=== PATIENT | male | born 1975 | race Asian ===

== ENCOUNTER 2017-04-13 00:24 | Inpatient (IN) | payer OTHER ==
[~2017-04-13] VITALS: Ht 175.3 cm; Wt 81.4 kg
[2017-04-13 01:01] LABS: HEMATOCRIT 43.3 % (39.2-51.8); HEMOGLOBIN 14.5 g/dL (13.7-18.0); WHITE BLOOD COUNT 5.5 x10^3/uL (3.4-10)
[2017-04-13 01:12] LABS: ASPARTATE AMINO TRANSFERASE 709 U/L (15-37); BLOOD UREA NITROGEN 10 mg/dL (7-18)
[2017-04-13] MEDS ORDERED: MAGNESIUM SULFATE 1 GM, THIAMINE 100 MG, FOLIC ACID 1 MG, MVI ADULT 10 ML in SODIUM CHL... IV ONE (01:30)
[2017-04-13] MEDS ORDERED: TEMAZEPAM 15 MG CAPSULE PO PRN (03:00)
[2017-04-13] MEDS ORDERED: morphine SULFATE 10 MG/ML, 1ML IVPush PRN (03:00)
[2017-04-13] MEDS ORDERED: LABETALOL 5MG/ML, 20ML IVPush PRN (03:00)
[2017-04-13 03:10] VITALS: BP 128/75
[2017-04-13] MEDS: CIPROFLOXACIN/PMX 400MG/200ML 200 ML IV SCH ×2 (03:39→15:18)
[2017-04-13] MEDS: INSULIN ASPART 100 UNITS/ML, PEN SQ-INSULIN SCH ×5 (03:40→20:34)
[2017-04-13 04:31] LABS: HIV 1&2 ANTIBODY SCREEN Nonreactive (Nonreactive); HIV-1 p24 ANTIGEN Nonreactive (Nonreactive)
[2017-04-13] MEDS: METRONIDAZOLE PMX 500MG/100ML 100 ML IV SCH ×3 (04:54→19:55)
[2017-04-13 07:21] VITALS: BP 107/56
[2017-04-13] MEDS: PANTOPROZOLE 40MG TABLET PO SCH (08:26)
[2017-04-13] MEDS: LACTULOSE 10 GM/15 ML UDC PO SCH ×2 (08:26→20:34)
[2017-04-13] MEDS: INSULIN DETEMIR 100 UNITS/ML, PEN SQ-INSULIN SCH ×2 (08:27→20:33)
[2017-04-13 08:54] LABS: ASPARTATE AMINO TRANSFERASE 673 U/L (15-37); BLOOD UREA NITROGEN 10 mg/dL (7-18)
[2017-04-13 13:23] VITALS: BP 112/64
[2017-04-13 19:55] VITALS: BP 100/74
[2017-04-14] MEDS: CIPROFLOXACIN/PMX 400MG/200ML 200 ML IV SCH ×2 (03:04→15:04)
[2017-04-14 03:20] VITALS: BP 114/58
[2017-04-14] MEDS: METRONIDAZOLE PMX 500MG/100ML 100 ML IV SCH ×2 (04:06→12:14)
[2017-04-14 05:47] LABS: HEMATOCRIT 41.9 % (39.2-51.8); HEMOGLOBIN 14.2 g/dL (13.7-18.0); WHITE BLOOD COUNT 6.3 x10^3/uL (3.4-10)
[2017-04-14 05:55] LABS: BLOOD UREA NITROGEN 12 mg/dL (7-18)
[2017-04-14 05:59] LABS: ASPARTATE AMINO TRANSFERASE 682 U/L (15-37)
[2017-04-14] MEDS: INSULIN ASPART 100 UNITS/ML, PEN SQ-INSULIN SCH ×4 (07:00→20:32)
[2017-04-14] MEDS: PANTOPROZOLE 40MG TABLET PO SCH (07:52)
[2017-04-14 07:54] VITALS: BP 114/75
[2017-04-14] MEDS: LACTULOSE 10 GM/15 ML UDC PO SCH ×2 (08:40→20:32)
[2017-04-14] MEDS: INSULIN DETEMIR 100 UNITS/ML, PEN SQ-INSULIN SCH ×2 (08:42→20:32)
[2017-04-14 13:00] VITALS: BP 117/57
[2017-04-14 14:37] LABS: ANA SCREEN NEGATIVE (Negative)
[2017-04-14 14:52] LABS: TOTAL IRON BINDING CAPACITY 220 mcg/dL (250-450)
[2017-04-14] MEDS: TENOFOVIR 300MG TABLET PO SCH (15:46)
[2017-04-14 20:15] VITALS: BP 122/71
[2017-04-15 04:18] VITALS: BP 113/65
[2017-04-15 05:44] LABS: BLOOD UREA NITROGEN 7 mg/dL (7-18)
[2017-04-15 05:50] LABS: ASPARTATE AMINO TRANSFERASE 635 U/L (15-37); HEMATOCRIT 41.5 % (39.2-51.8); HEMOGLOBIN 14.1 g/dL (13.7-18.0)
[2017-04-15] MEDS: INSULIN ASPART 100 UNITS/ML, PEN SQ-INSULIN SCH ×4 (07:00→20:13)
[2017-04-15] MEDS: PANTOPROZOLE 40MG TABLET PO SCH (08:00)
[2017-04-15] MEDS: LACTULOSE 10 GM/15 ML UDC PO SCH ×2 (08:00→20:07)
[2017-04-15] MEDS: TENOFOVIR 300MG TABLET PO SCH (08:00)
[2017-04-15 08:11] VITALS: BP 111/62
[2017-04-15] MEDS ORDERED: TENOFOVIR 300MG TABLET PO SCH (09:00)
[2017-04-15] MEDS: INSULIN DETEMIR 100 UNITS/ML, PEN SQ-INSULIN SCH ×2 (09:03→20:26)
[2017-04-15 14:11] VITALS: BP 120/65
[2017-04-15 18:46] VITALS: BP 116/72
[2017-04-16 01:51] VITALS: BP 103/61
[2017-04-16] MEDS: INSULIN ASPART 100 UNITS/ML, PEN SQ-INSULIN SCH ×4 (06:34→20:53)
[2017-04-16 08:12] VITALS: BP 111/63
[2017-04-16] MEDS: TENOFOVIR 300MG TABLET PO SCH (08:17)
[2017-04-16] MEDS: LACTULOSE 10 GM/15 ML UDC PO SCH ×2 (08:17→20:44)
[2017-04-16] MEDS: PANTOPROZOLE 40MG TABLET PO SCH (08:17)
[2017-04-16] MEDS: INSULIN DETEMIR 100 UNITS/ML, PEN SQ-INSULIN SCH ×2 (08:18→20:51)
[2017-04-16 08:26] LABS: ASPARTATE AMINO TRANSFERASE 628 U/L (15-37); BLOOD UREA NITROGEN 8 mg/dL (7-18)
[2017-04-16 11:04] VITALS: BP 125/78
[2017-04-16] MEDS: ONDANSETRON 2MG/ML, 2ML IVPush PRN (11:08)
[2017-04-16 12:52] VITALS: BP 115/65
[2017-04-16 12:53] VITALS: BP 107/63
[2017-04-16 20:00] VITALS: BP 111/69
[2017-04-17 02:00] VITALS: BP 120/74
[2017-04-17] MEDS: INSULIN ASPART 100 UNITS/ML, PEN SQ-INSULIN SCH ×4 (06:23→21:00)
[2017-04-17 06:43] VITALS: BP 105/66
[2017-04-17] MEDS: PANTOPROZOLE 40MG TABLET PO SCH (08:27)
[2017-04-17] MEDS: INSULIN DETEMIR 100 UNITS/ML, PEN SQ-INSULIN SCH ×2 (08:27→21:31)
[2017-04-17] MEDS: TENOFOVIR 300MG TABLET PO SCH (08:27)
[2017-04-17] MEDS: LACTULOSE 10 GM/15 ML UDC PO SCH ×2 (08:27→21:29)
[2017-04-17] MEDS: ONDANSETRON ODT 4 MG PO PRN (09:52)
[2017-04-17 11:14] VITALS: BP 127/76
[2017-04-17 11:58] LABS: ASPARTATE AMINO TRANSFERASE 692 U/L (15-37); BLOOD UREA NITROGEN 10 mg/dL (7-18)
[2017-04-17 13:28] VITALS: BP 116/61
[2017-04-17] MEDS: ONDANSETRON 2MG/ML, 2ML IVPush PRN (14:17)
[2017-04-17 18:32] VITALS: BP 117/69
[2017-04-18 02:56] VITALS: BP 106/62
[2017-04-18 05:19] LABS: HEMATOCRIT 40.1 % (39.2-51.8); HEMOGLOBIN 13.7 g/dL (13.7-18.0); WHITE BLOOD COUNT 4.7 x10^3/uL (3.4-10)
[2017-04-18 05:26] LABS: BLOOD UREA NITROGEN 9 mg/dL (7-18)
[2017-04-18 05:29] LABS: ASPARTATE AMINO TRANSFERASE 616 U/L (15-37)
[2017-04-18 06:52] VITALS: BP 119/71
[2017-04-18] MEDS: INSULIN ASPART 100 UNITS/ML, PEN SQ-INSULIN SCH ×4 (07:00→21:59)
[2017-04-18] MEDS: LACTULOSE 10 GM/15 ML UDC PO SCH ×2 (08:13→21:49)
[2017-04-18] MEDS: PANTOPROZOLE 40MG TABLET PO SCH (08:13)
[2017-04-18] MEDS: TENOFOVIR 300MG TABLET PO SCH (08:13)
[2017-04-18] MEDS: ONDANSETRON 2MG/ML, 2ML IVPush PRN (08:14)
[2017-04-18] MEDS: INSULIN DETEMIR 100 UNITS/ML, PEN SQ-INSULIN SCH ×2 (08:22→21:58)
[2017-04-18 13:20] VITALS: BP 111/67
[2017-04-18 19:15] VITALS: BP 127/72
[2017-04-19 03:07] VITALS: BP 108/66
[2017-04-19 05:44] LABS: BLOOD UREA NITROGEN 9 mg/dL (7-18)
[2017-04-19 05:47] LABS: ASPARTATE AMINO TRANSFERASE 566 U/L (15-37)
[2017-04-19] MEDS: INSULIN ASPART 100 UNITS/ML, PEN SQ-INSULIN SCH ×4 (07:00→22:23)
[2017-04-19 07:21] VITALS: BP 116/66
[2017-04-19] MEDS: PANTOPROZOLE 40MG TABLET PO SCH (07:31)
[2017-04-19] MEDS: LACTULOSE 10 GM/15 ML UDC PO SCH ×2 (07:32→22:35)
[2017-04-19] MEDS: TENOFOVIR 300MG TABLET PO SCH (07:32)
[2017-04-19] MEDS: INSULIN DETEMIR 100 UNITS/ML, PEN SQ-INSULIN SCH ×2 (07:32→22:35)
[2017-04-19] MEDS: ONDANSETRON 2MG/ML, 2ML IVPush PRN (07:32)
[2017-04-19 14:03] VITALS: BP 125/78
[2017-04-19 20:00] VITALS: BP 146/76
[2017-04-20 02:38] VITALS: BP 105/57
[2017-04-20 05:29] LABS: ASPARTATE AMINO TRANSFERASE 561 U/L (15-37); BLOOD UREA NITROGEN 10 mg/dL (7-18)
[2017-04-20 06:55] VITALS: BP 107/61
[2017-04-20] MEDS: PANTOPROZOLE 40MG TABLET PO SCH (07:43)
[2017-04-20] MEDS: INSULIN ASPART 100 UNITS/ML, PEN SQ-INSULIN SCH ×4 (07:43→22:35)
[2017-04-20] MEDS: LACTULOSE 10 GM/15 ML UDC PO SCH ×2 (09:43→22:35)
[2017-04-20] MEDS: TENOFOVIR 300MG TABLET PO SCH (09:43)
[2017-04-20] MEDS: INSULIN DETEMIR 100 UNITS/ML, PEN SQ-INSULIN SCH ×2 (09:44→22:35)
[2017-04-20 13:05] VITALS: BP 136/82
[2017-04-20 20:16] VITALS: BP 131/79
[2017-04-21 01:25] VITALS: BP 117/67
[2017-04-21] MEDS: INSULIN ASPART 100 UNITS/ML, PEN SQ-INSULIN SCH ×4 (07:56→20:27)
[2017-04-21] MEDS: PANTOPROZOLE 40MG TABLET PO SCH (08:07)
[2017-04-21] MEDS: TENOFOVIR 300MG TABLET PO SCH (08:07)
[2017-04-21] MEDS: LACTULOSE 10 GM/15 ML UDC PO SCH ×2 (08:07→20:27)
[2017-04-21] MEDS: INSULIN DETEMIR 100 UNITS/ML, PEN SQ-INSULIN SCH ×2 (08:11→20:28)
[2017-04-21 08:12] VITALS: BP 108/62
[2017-04-21 15:26] VITALS: BP 131/83
[2017-04-21] MEDS: ONDANSETRON 2MG/ML, 2ML IVPush PRN (17:36)
[2017-04-21] MEDS: ONDANSETRON ODT 4 MG PO PRN (17:50)
[2017-04-21 20:25] VITALS: BP 127/73
[2017-04-22 08:17] LABS: ASPARTATE AMINO TRANSFERASE 480 U/L (15-37); BLOOD UREA NITROGEN 9 mg/dL (7-18)
[2017-04-22] MEDS: LACTULOSE 10 GM/15 ML UDC PO SCH (08:30)
[2017-04-22] MEDS: INSULIN ASPART 100 UNITS/ML, PEN SQ-INSULIN SCH (08:30)
[2017-04-22] MEDS: INSULIN DETEMIR 100 UNITS/ML, PEN SQ-INSULIN SCH (08:30)
[2017-04-22] MEDS: PANTOPROZOLE 40MG TABLET PO SCH (08:30)
[2017-04-22] MEDS: TENOFOVIR 300MG TABLET PO SCH (08:30)
[2017-04-22] MEDS ORDERED: ONDA4TAB7 PO (10:30)
[2017-04-22] MEDS ORDERED: LACT10SO5 PO (10:30)
[2017-04-22] MEDS ORDERED: INSU100I28 SQ-INSULIN (10:30)
[2017-04-22] MEDS ORDERED: PANT40TA5 PO (10:30)
[2017-04-22] MEDS ORDERED: TENO300T5 PO (10:30)
== END 2017-04-22 16:15 | disposition home or self-care (01) | DRG 432 ==
LOC: ED 00:58 → EDIP 02:10 → 4NOR 03:12 → 5SO 04-20 18:43 → DCLOUNGE 04-22 15:30
PROVIDERS: ADMIT Internal Medicine; ATTEND Internal Medicine
DX: K70.30 Alcoholic cirrhosis of liver without ascites (principal); K85.90 Acute pancreatitis without necrosis or infection, unspecified; E43 Unspecified severe protein-calorie malnutrition; D68.9 Coagulation defect, unspecified; D69.59 Other secondary thrombocytopenia; K83.1 Obstruction of bile duct; E11.65 Type 2 diabetes mellitus with hyperglycemia; E87.1 Hypo-osmolality and hyponatremia; B15.9 Hepatitis A without hepatic coma; B18.1 Chronic viral hepatitis B without delta-agent; D64.9 Anemia, unspecified; B19.20 Unspecified viral hepatitis C without hepatic coma; R16.1 Splenomegaly, not elsewhere classified; D75.89 Other specified diseases of blood and blood-forming organs; Z68.26 Body mass index [BMI] 26.0-26.9, adult; Z79.4 Long term (current) use of insulin; Z90.49 Acquired absence of other specified parts of digestive tract; Z71.3 Dietary counseling and surveillance
CPT/HCPCS: 36415; 70450; 74181; 76700; 80053; 80307; 81003; 82103; 82105; 82140; 82390; 82607; 82746; 82962; 83036; 83516; 83540; 83550; 83690; 83735; 84100; 84443; 85025; 85610; 85730; 86038; 86692; 86703; 86704; 86706; 86708; 86709; 86803; 87340; 87380; 87517; 87899; 96365; J0744; J1815; J2405; J3411; J3475; Q0162; G0435; J7030

== ENCOUNTER 2017-04-23 19:09 | Inpatient (IN) | payer OTHER ==
[~2017-04-23] VITALS: Ht 175.3 cm; Wt 91.6 kg
[~2017-04-23 19:09] MED LIST: INSU100I28 SQ-INSULIN; LACT10SO5 PO; ONDA4TAB7 PO; PANT40TA5 PO; TENO300T5 PO
[2017-04-23] MEDS ORDERED: SODIUM CHLORIDE 0.9% 1,000 ML IV ONE (19:19)
[2017-04-23] MEDS ORDERED: SODIUM CHLORIDE FLUSH 10ML SYR IVF ONE (19:30)
[2017-04-23 19:56] LABS: HEMOGLOBIN 14.1 g/dL (13.7-18.0); WHITE BLOOD COUNT 6.2 x10^3/uL (3.4-10)
[2017-04-23 20:07] LABS: ASPARTATE AMINO TRANSFERASE 482 U/L (15-37); BLOOD UREA NITROGEN 12 mg/dL (7-18)
[2017-04-23] MEDS ORDERED: MORPHINE SULFATE 4 MG/ML, 1ML ONE (22:14)
[2017-04-23] MEDS ORDERED: ONDANSETRON 2MG/ML, 2ML ONE (22:15)
[2017-04-23] MEDS ORDERED: morphine SULFATE 10 MG/ML, 1ML IVPush ONE (22:30)
[2017-04-23] MEDS ORDERED: ONDANSETRON 2MG/ML, 2ML IVPush ONE (22:30)
[2017-04-24] MEDS ORDERED: BISACODYL 10 MG SUPP PR PRN (01:00)
[2017-04-24] MEDS: SODIUM CHLORIDE 0.9% 1,000 ML IV SCH ×3 (01:25→22:59)
[2017-04-24 01:40] VITALS: BP 131/73
[2017-04-24 05:13] VITALS: BP 124/71
[2017-04-24 05:58] LABS: HEMATOCRIT 36.8 % (39.2-51.8)
[2017-04-24 06:00] LABS: ASPARTATE AMINO TRANSFERASE 387 U/L (15-37); BLOOD UREA NITROGEN 11 mg/dL (7-18)
[2017-04-24 06:50] VITALS: BP 113/70
[2017-04-24] MEDS: PANTOPROZOLE 40MG TABLET PO SCH (07:30)
[2017-04-24] MEDS: TENOFOVIR 300MG TABLET PO SCH ×2 (08:50→14:17)
[2017-04-24] MEDS: LACTULOSE 10 GM/15 ML UDC PO SCH ×2 (08:50→20:24)
[2017-04-24] MEDS ORDERED: MORPHINE SULFATE 4 MG/ML, 1ML ONE ×2 (10:25→14:01)
[2017-04-24] MEDS: morphine SULFATE 10 MG/ML, 1ML IVPush PRN ×2 (10:28→14:07)
[2017-04-24] MEDS ORDERED: GLUCAGON 1 MG IM PRN (14:00)
[2017-04-24] MEDS ORDERED: DEXTROSE 50%, 50ML SYRINGE IVPush PRN (14:00)
[2017-04-24] MEDS ORDERED: DEXTROSE 4 GM TAB.CHEW PO PRN (14:00)
[2017-04-24 15:00] VITALS: BP 106/65
[2017-04-24] MEDS: INSULIN ASPART 100 UNITS/ML, PEN SQ-INSULIN SCH ×2 (16:00→20:14)
[2017-04-24 18:51] VITALS: BP 100/65
[2017-04-24] MEDS: SODIUM CHLORIDE FLUSH 10ML SYR IVF SCH (20:24)
[2017-04-25 01:06] VITALS: BP 124/73
[2017-04-25] MEDS: PROMETHAZINE 25 MG/ML, 1ML IM PRN (02:30)
[2017-04-25 05:14] LABS: HEMATOCRIT 40.5 % (39.2-51.8); HEMOGLOBIN 13.8 g/dL (13.7-18.0); WHITE BLOOD COUNT 15.1 x10^3/uL (3.4-10)
[2017-04-25 05:38] LABS: ASPARTATE AMINO TRANSFERASE 370 U/L (15-37); BLOOD UREA NITROGEN 26 mg/dL (7-18)
[2017-04-25] MEDS: SODIUM CHLORIDE 0.9% 1,000 ML IV SCH ×3 (06:35→18:23)
[2017-04-25 06:59] VITALS: BP 119/69
[2017-04-25] MEDS: INSULIN ASPART 100 UNITS/ML, PEN SQ-INSULIN SCH ×4 (07:00→21:00)
[2017-04-25] MEDS: PANTOPROZOLE 40MG TABLET PO SCH (07:30)
[2017-04-25] MEDS ORDERED: SODIUM CHLORIDE 0.9% 1,000ML IVBOLUS ONE (08:30)
[2017-04-25] MEDS: TENOFOVIR 300MG TABLET PO SCH (08:34)
[2017-04-25] MEDS: SODIUM CHLORIDE FLUSH 10ML SYR IVF SCH ×2 (08:36→23:24)
[2017-04-25] MEDS: LACTULOSE 10 GM/15 ML UDC PO SCH ×3 (08:36→23:24)
[2017-04-25] MEDS: ONDANSETRON 2MG/ML, 2ML IVPush PRN ×2 (08:36→11:29)
[2017-04-25] MEDS ORDERED: PIPERACILLIN/TAZO 0.75 GM in SODIUM CHLORIDE 0.9% 50 ML IV SCH (10:00)
[2017-04-25] MEDS ORDERED: PHARMACY MAY ADJ FOR RENAL FX MC PRN (10:00)
[2017-04-25] MEDS: PIPERACILLIN/TAZO(ZOSYN) 2.25 GM in NS 50 ML IVPB SCH ×2 (11:35→18:21)
[2017-04-25] MEDS ORDERED: ALBUMIN HUMAN 25% 100 ML IV SCH (12:00)
[2017-04-25 14:00] VITALS: BP 100/45
[2017-04-25] MEDS: ALBUMIN HUMAN 25% 200 ML IV SCH (14:11)
[2017-04-25] MEDS: CEFTRIAXONE PMX 2GM/50ML 50 ML IV SCH (15:41)
[2017-04-25 18:32] VITALS: BP 100/49
[2017-04-25 20:00] VITALS: BP 102/60
[2017-04-25] MEDS: METRONIDAZOLE PMX 500MG/100ML 100 ML IV SCH (23:24)
[2017-04-26] MEDS: ALBUMIN HUMAN 25% 200 ML IV SCH ×2 (00:34→08:51)
[2017-04-26] MEDS: PIPERACILLIN/TAZO(ZOSYN) 2.25 GM in NS 50 ML IVPB SCH ×4 (01:52→20:32)
[2017-04-26 01:58] VITALS: BP 109/63
[2017-04-26 06:24] LABS: ASPARTATE AMINO TRANSFERASE 167 U/L (15-37); BLOOD UREA NITROGEN 47 mg/dL (7-18)
[2017-04-26 06:38] LABS: HEMATOCRIT 32.2 % (39.2-51.8); HEMOGLOBIN 11.3 g/dL (13.7-18.0); WHITE BLOOD COUNT 11.5 x10^3/uL (3.4-10)
[2017-04-26] MEDS: INSULIN ASPART 100 UNITS/ML, PEN SQ-INSULIN SCH ×4 (07:00→21:00)
[2017-04-26] MEDS: PANTOPROZOLE 40MG TABLET PO SCH (07:30)
[2017-04-26] MEDS: SODIUM CHLORIDE 0.9% 1,000 ML IV SCH ×3 (08:14→22:55)
[2017-04-26] MEDS: TENOFOVIR 300MG TABLET PO SCH (08:15)
[2017-04-26] MEDS: SODIUM CHLORIDE FLUSH 10ML SYR IVF SCH ×2 (08:15→20:32)
[2017-04-26] MEDS: LACTULOSE 10 GM/15 ML UDC PO SCH ×2 (08:15→22:55)
[2017-04-26] MEDS: ONDANSETRON 2MG/ML, 2ML IVPush PRN (08:49)
[2017-04-26 08:54] VITALS: BP 118/70
[2017-04-26] MEDS: CHOLECALCIFEROL 1,000 UNIT TABLET PO SCH (10:11)
[2017-04-26] MEDS: METRONIDAZOLE PMX 500MG/100ML 100 ML IV SCH ×2 (10:50→22:54)
[2017-04-26] MEDS: CEFTRIAXONE PMX 2GM/50ML 50 ML IV SCH (15:15)
[2017-04-26 15:55] VITALS: BP 150/83
[2017-04-26 19:07] VITALS: BP 105/58
[2017-04-27 03:25] VITALS: BP 110/53
[2017-04-27] MEDS: PIPERACILLIN/TAZO(ZOSYN) 2.25 GM in NS 50 ML IVPB SCH ×4 (04:03→20:12)
[2017-04-27 05:40] LABS: BLOOD UREA NITROGEN 63 mg/dL (7-18)
[2017-04-27 05:44] LABS: HEMATOCRIT 31.4 % (39.2-51.8); WHITE BLOOD COUNT 6.8 x10^3/uL (3.4-10)
[2017-04-27 05:55] LABS: ASPARTATE AMINO TRANSFERASE 120 U/L (15-37)
[2017-04-27] MEDS: METRONIDAZOLE PMX 500MG/100ML 100 ML IV SCH ×2 (06:28→16:32)
[2017-04-27] MEDS: INSULIN ASPART 100 UNITS/ML, PEN SQ-INSULIN SCH (07:00)
[2017-04-27 07:52] VITALS: BP 99/50
[2017-04-27] MEDS: TENOFOVIR 300MG TABLET PO SCH (09:59)
[2017-04-27] MEDS: PANTOPROZOLE 40MG TABLET PO SCH (10:00)
[2017-04-27] MEDS: CHOLECALCIFEROL 1,000 UNIT TABLET PO SCH (10:00)
[2017-04-27] MEDS: LACTULOSE 10 GM/15 ML UDC PO SCH ×2 (10:00→20:12)
[2017-04-27] MEDS: SODIUM CHLORIDE 0.9% 1,000 ML IV SCH ×3 (10:04→20:11)
[2017-04-27] MEDS: SODIUM CHLORIDE FLUSH 10ML SYR IVF SCH ×2 (10:05→20:12)
[2017-04-27 10:41] VITALS: BP 129/69
[2017-04-27 13:34] VITALS: BP 148/61
[2017-04-27] MEDS: CEFTRIAXONE PMX 2GM/50ML 50 ML IV SCH (15:13)
[2017-04-28] MEDS: METRONIDAZOLE PMX 500MG/100ML 100 ML IV SCH ×3 (01:00→17:42)
[2017-04-28] MEDS: PIPERACILLIN/TAZO(ZOSYN) 2.25 GM in NS 50 ML IVPB SCH ×4 (04:00→22:00)
[2017-04-28] MEDS: SODIUM CHLORIDE 0.9% 1,000 ML IV SCH ×2 (04:42→14:55)
[2017-04-28] MEDS: LACTULOSE 10 GM/15 ML UDC PO SCH ×2 (05:45→19:51)
[2017-04-28] MEDS: ONDANSETRON 2MG/ML, 2ML IVPush PRN (05:45)
[2017-04-28 07:08] VITALS: BP 112/67
[2017-04-28] MEDS: PANTOPROZOLE 40MG TABLET PO SCH (07:30)
[2017-04-28] MEDS: morphine SULFATE 10 MG/ML, 1ML IVPush PRN ×6 (08:18→19:51)
[2017-04-28] MEDS: SODIUM CHLORIDE FLUSH 10ML SYR IVF SCH ×2 (09:00→19:51)
[2017-04-28] MEDS: CHOLECALCIFEROL 1,000 UNIT TABLET PO SCH (10:11)
[2017-04-28] MEDS: TENOFOVIR 300MG TABLET PO SCH (10:12)
[2017-04-28 15:27] VITALS: BP 137/81
[2017-04-28] MEDS: CEFTRIAXONE PMX 2GM/50ML 50 ML IV SCH (15:28)
[2017-04-28 19:30] VITALS: BP 125/75
[2017-04-28 23:20] VITALS: BP 128/71
[2017-04-29] MEDS: morphine SULFATE 10 MG/ML, 1ML IVPush PRN ×4 (00:12→12:37)
[2017-04-29] MEDS: METRONIDAZOLE PMX 500MG/100ML 100 ML IV SCH ×2 (01:00→09:00)
[2017-04-29] MEDS: SODIUM CHLORIDE 0.9% 1,000 ML IV SCH ×2 (01:54→11:00)
[2017-04-29] MEDS: PIPERACILLIN/TAZO(ZOSYN) 2.25 GM in NS 50 ML IVPB SCH ×2 (04:00→10:00)
[2017-04-29 04:26] VITALS: BP 121/73
[2017-04-29 06:34] VITALS: BP 118/71
[2017-04-29] MEDS: PANTOPROZOLE 40MG TABLET PO SCH (07:30)
[2017-04-29] MEDS: TENOFOVIR 300MG TABLET PO SCH (09:00)
[2017-04-29] MEDS: LACTULOSE 10 GM/15 ML UDC PO SCH (09:00)
[2017-04-29] MEDS: SODIUM CHLORIDE FLUSH 10ML SYR IVF SCH (09:00)
[2017-04-29] MEDS: CHOLECALCIFEROL 1,000 UNIT TABLET PO SCH (09:00)
[2017-04-29] MEDS: ONDANSETRON 2MG/ML, 2ML IVPush PRN (10:43)
[2017-04-29] MEDS: PROMETHAZINE 25 MG/ML, 1ML IM PRN (12:51)
== END 2017-04-29 13:30 | disposition hospice, home (50) | DRG 871 ==
LOC: ED 21:01 → EDIP 23:45 → 3NE 04-24 00:45 → CCU 04-25 09:44 → 4WST 04-25 19:10 → 3NW 04-27 10:31
PROVIDERS: ADMIT Family Medicine; ATTEND Internal Medicine
DX: A41.9 Sepsis, unspecified organism (principal); E43 Unspecified severe protein-calorie malnutrition; K76.7 Hepatorenal syndrome; G93.41 Metabolic encephalopathy; D61.818 Other pancytopenia; N17.9 Acute kidney failure, unspecified; K85.90 Acute pancreatitis without necrosis or infection, unspecified; E87.0 Hyperosmolality and hypernatremia; K76.6 Portal hypertension; D68.4 Acquired coagulation factor deficiency; E87.1 Hypo-osmolality and hyponatremia; B15.9 Hepatitis A without hepatic coma; B18.1 Chronic viral hepatitis B without delta-agent; R18.8 Other ascites; Z94.4 Liver transplant status; D69.59 Other secondary thrombocytopenia; D75.89 Other specified diseases of blood and blood-forming organs; E11.9 Type 2 diabetes mellitus without complications; B19.20 Unspecified viral hepatitis C without hepatic coma; Z68.29 Body mass index [BMI] 29.0-29.9, adult; E55.9 Vitamin D deficiency, unspecified; E87.8 Other disorders of electrolyte and fluid balance, not elsewhere classified; I10 Essential (primary) hypertension; K72.90 Hepatic failure, unspecified without coma; K74.60 Unspecified cirrhosis of liver; Z51.5 Encounter for palliative care; Z66 Do not resuscitate; Z76.82 Awaiting organ transplant status; Z79.4 Long term (current) use of insulin; Z83.3 Family history of diabetes mellitus; Z87.891 Personal history of nicotine dependence; Z89.011 Acquired absence of right thumb; Z90.49 Acquired absence of other specified parts of digestive tract
CPT/HCPCS: 36415; 71010; 74176; 76700; 80053; 81001; 82140; 82247; 82248; 82306; 82436; 82570; 82962; 83605; 83690; 83735; 84100; 84133; 84156; 84300; 85025; 85610; 87040; 87081; 93005; 96361; 96374; 96375; J0696; J1815; J2405; J2543; J2550; P9047; J2270; J7030